=== PATIENT | male | born 2000 | race Two or more races ===

== ENCOUNTER 2025-01-02 05:36 | Observation (INO) | payer OTHER ==
[2024-12-29 15:13] VITALS: BMI 36.3
[2025-01-02] MEDS ORDERED: AFRIN NASAL MIST 15 ML BOT ONE (07:18)
[2025-01-02] MEDS ORDERED: Sevoflurane 250 ML INH ANEST BOTTLE ONE (07:18)
[2025-01-02] MEDS ORDERED: PROPOFOL 20 ML ONE (07:21)
[2025-01-02] MEDS ORDERED: Ondansetron PF 4 MG/2 ML Vial ONE (07:29)
[2025-01-02] MEDS ORDERED: HYDROcodone/Acetaminophen 5/325 mg Tablet PO PRN (07:29)
[2025-01-02] MEDS ORDERED: Rocuronium Bromide 10 MG/ML (10ML VIAL) ONE (07:30)
[2025-01-02] MEDS ORDERED: Oxymetazoline HCl 0.05% (15 ML) ONE (07:49)
[2025-01-02] MEDS ORDERED: Tranexamic Acid 1,000 MG/10 ML VIAL ONE (08:11)
[2025-01-02] MEDS ORDERED: SUGAMMADEX SODIUM 200 MG/2 ML VIAL ONE (08:20)
[2025-01-02] MEDS ORDERED: HYDROmorphone 0.5 MG/0.5 ML SYRINGE ONE ×3 (09:34→10:11)
[2025-01-02] MEDS: Acetaminophen 325 MG TAB PO SCH (12:19)
[2025-01-02] MEDS: Ondansetron PF 4 MG/2 ML Vial IVP PRN (12:30)
[2025-01-02] MEDS: HYDROcodone/Acetaminophen 10/325 mg Tablet PO PRN (14:06)
[2025-01-02] MEDS: Ibuprofen 200 MG TAB PO SCH (14:32)
[2025-01-03 07:50] VITALS: BP 126/67; TEMP 98.2
== END 2025-01-03 11:00 | disposition home or self-care (01) ==
LOC: CSHSDC 05:36 → CSHTELE 11:26 → INTOOBSV 11:26
PROVIDERS: ADMIT Otolaryngology; ATTEND Otolaryngology
PROC: 0CTPXZZ Resection of Tonsils, External Approach (ICD-10-PCS; principal; 2025-01-02)
DX: J35.01 Chronic tonsillitis (principal); G43.909 Migraine, unspecified, not intractable, without status migrainosus; Z79.899 Other long term (current) drug therapy
CPT/HCPCS: 88304; 94760; J1100; J1171; J2250; J2270; J2405; J2704; J3010

== ENCOUNTER 2025-01-07 13:27 | Emergency (ER) | payer OTHER ==
[~2025-01-07 13:27] MED LIST: Iopamidol 370 76% 100 ML VIAL ONE
[2025-01-07] MEDS ORDERED: Dexamethasone 10 MG/ML VIAL ONE (14:26)
[2025-01-07] MEDS ORDERED: Ketorolac Tromethamine 30 MG (1 mL) VIAL ONE (14:26)
[2025-01-07 15:12] LABS: #Basophils 0.04 10x3/uL (0.0-0.2); #Eosinophils 0.13 10x3/uL (0.0-0.5); #Monocytes 0.74 10x3/uL (0.0-1.1); #Neutrophils 8.96 10x3/uL (1.5-8.4); %Basophils 0.3 % (0.0-2.0); %Eosinophils 1.0 % (0.0-6.0); %Lymphocytes 20.5 % (18.0-47.0); %Monocytes 5.9 % (0.0-10.0); %Neutrophils 71.9 % (40.0-75.0); Hematocrit 47.4 % (38.8-50.0); Hemoglobin 17.0 g/dL (13.5-17.5); Mean Corpuscular Hemoglobin 29.4 pg (27.0-33.0); Mean Corpuscular Volume 82.0 fL (81.2-95.1); Platelet Count 310 10x3/uL (150-450); Red Blood Cell (RBC) Count 5.78 10x6/uL (4.32-5.72); White Blood Cell (WBC) Count 12.48 10x3/uL (3.5-10.5)
[2025-01-07] MEDS ORDERED: Ondansetron PF 4 MG/2 ML Vial ONE (15:20)
[2025-01-07 15:25] LABS: ALT (SGPT) 37 U/L (Less than 45); AST (SGOT) 19 U/L (11-34); Albumin 4.4 g/dL (3.1-4.5); Alkaline Phosphatase 109 U/L (40-110); Anion Gap 22 mmol/L (10-20); BUN (Urea Nitrogen) 8 mg/dL (8.9-20.6); Bilirubin, Total 0.9 mg/dL (0.3-1.2); Calc. Creatinine Clearance 0 mL/min (70-130); Calcium 9.8 mg/dL (7.8-10.44); Carbon Dioxide 19 mmol/L (22-29); Chloride 102 mmol/L (98-107); Globulin 3.8 g/dL (2.4-3.5); Glucose 80 mg/dL (70-105); Potassium 4.3 mmol/L (3.5-5.1); Sodium 139 mmol/L (136-145)
[2025-01-07 15:31] LABS: Troponin I Less than 0.010 ng/mL (< 0.028)
== END 2025-01-07 16:27 | disposition home or self-care (01) ==
LOC: CSHERS 13:27
DX: G89.18 Other acute postprocedural pain (principal); Z55.6 Problems related to health literacy
CPT/HCPCS: 70491; 71275; 80053; 83880; 84484; 85025; 93005; 96374; 96375; J1100; J1885; Q9967